=== PATIENT | female | born 1935 | race Caucasian/White ===

== ENCOUNTER 2016-12-06 14:29 | Emergency (ER) | payer MEDICARE ==
[~2016-12-06] VITALS: Ht 157.5 cm; Wt 71.2 kg
[2016-12-06] MEDS ORDERED: LORA10TA2 (14:55)
[2016-12-06] MEDS ORDERED: LEVO75TA4 (14:55)
[2016-12-06] MEDS ORDERED: HYDR25TA6 (14:55)
[2016-12-06] MEDS ORDERED: LORA-376 (14:55)
[2016-12-06] MEDS ORDERED: VALA1TAB (14:55)
[2016-12-06] MEDS ORDERED: METO100T (14:55)
[2016-12-06] MEDS ORDERED: ACCU1TAB (14:55)
[2016-12-06] MEDS ORDERED: PRED10TA (14:55)
[2016-12-06] MEDS ORDERED: ATOR1TAB18 (14:55)
[2016-12-06] MEDS ORDERED: POTA1TAB21 (14:55)
--- NOTE | 2016-12-06 15:14 | ECGEPIP ---
Stationary ECG Study [facility] - ED Test Date: 2016-12-06 Pat Name: HUMBERTO CHANDLER Department: Room: - Gender: F Mathematical Sciences Professor: : 1935 Requested By: Torri Cheung Order Number: [id number] Reading MD: Delmer El Measurements Intervals [place] Rate: 99 P: 19 NH: 168 QRS: -34 QRSD: 85 T: 78 QT: 346 QTc: 445 Interpretive Statements SINUS RHYTHM PATTERN CONSISTENT WITH PULMONARY DISEASE LEFT VENTRICULAR HYPERTROPHY AND ST-T CHANGE INFERIOR MYOCARDIAL INFARCTION, OF INDETERMINATE AGE NO PRIORS Electronically Signed On 12-06-2016 15:14:29 EDT by Delmer El
--- NOTE | 2016-12-06 15:58 | REP ---
CT HEAD WITHOUT CONTRAST: HISTORY: Altered mental status. Areas of decreased attentuation are present in the basal ganglia. These represent old lacunar infarctions. Areas of decreased attenuation are present in the periventricular and subcortical white matter. This represents small vessel ischemic disease. There is no intraparenchymal hemorrhage, mass, or midline shift. The ventricular system and cortical sulci are dilated consistent with mild volume loss. There is no extracerebral collection. The visualized sinuses are clear. IMPRESSION: 1. Old bilateral basal ganglia lacunar infarctions. 2. Small vessel ischemic disease. 3. Mild volume loss. Signed by Janes Silva MD 12/06/2016 04:09 P
[2016-12-06 16:43] LABS: BASO % 0.2 % (0.0-1.0); EOS % 0.5 % (0.0-3.0); LARGE UNSTAINED CELL # 0.1 K/mm3 (0.0-0.4); LARGE UNSTAINED CELL % 1.1 % (0.0-4.0); LYMPH # 1.6 K/mm3 (1.5-4.5); LYMPH % 15.2 % (24.0-44.0); MEAN CORPUSCULAR HEMOGLOBIN 30.6 pg (27.0-33.0); MEAN CORPUSCULAR HGB CONC 34.3 g/dl (32.0-36.5); MONO # 0.6 K/mm3 (0.0-0.8); MONO % 5.4 % (0.0-5.0); NEUTROPHILS # 7.9 K/mm3 (1.8-7.7); NEUTROPHILS % 77.6 % (36.0-66.0); PLATELET COUNT, AUTOMATED 242 k/mm3 (150-450); RED CELL DISTRIBUTION WIDTH 13.1 % (11.5-14.5); WHITE BLOOD COUNT 10.2 K/mm3 (4.0-10.0)
[2016-12-06 16:53] LABS: CALCIUM LEVEL 9.6 MG/DL (8.8-10.2); CREATININE FOR GFR 1.29 MG/DL (0.55-1.02); GLOMERULAR FILTRATION RATE 42.2 (>32); POTASSIUM SERUM 3.3 MEQ/L (3.5-5.1)
[2016-12-06] MEDS ORDERED: NS 500 ML IV ONE ×2 (17:00→18:00)
[2016-12-06] MEDS ORDERED: diphenhydrAMINE INJ 50MG/ML VIAL (J1200) IV ONE (20:00)
[2016-12-06] MEDS ORDERED: METOPROLOL TART 50 MG TAB PO ONE ×2 (20:30→22:30)
[2016-12-06 22:58] VITALS: BP 191/95
[2016-12-06 23:00] VITALS: BP 195/96
== END 2016-12-06 23:15 | disposition home or self-care (01) ==
LOC: M ED 15:44
DX: R53.1 Weakness (principal); I73.9 Peripheral vascular disease, unspecified; B02.9 Zoster without complications; I10 Essential (primary) hypertension; E11.9 Type 2 diabetes mellitus without complications; E78.00 Pure hypercholesterolemia, unspecified; F41.9 Anxiety disorder, unspecified; E07.9 Disorder of thyroid, unspecified; Z95.5 Presence of coronary angioplasty implant and graft; Z90.79 Acquired absence of other genital organ(s); Z79.899 Other long term (current) drug therapy; Z88.0 Allergy status to penicillin
CPT/HCPCS: 36415; 70450; 80048; 82550; 82553; 84484; 85025; 93005; 93041; 94760; 96361; 96374; 99285; J1200

== ENCOUNTER → 2020-03-19 | Outpatient (REF) | payer MEDICARE ==
[~2020-03-19] MED LIST: ACCU1TAB; ATOR80TA59; HYDR25TA6; LEVO75TA4; LORA-243; LORA0.5T5; METO100T5; POTA1TAB21; PRED10TA2; VALA1TAB5
[2020-03-19 19:32] LABS: APPEARANCE, URINE CLOUDY (CLEAR); BACTERIA, URINE AUTO 1+ (NEGATIVE); BILIRUBIN, URINE AUTO NEGATIVE (NEGATIVE); BLOOD, URINE BLOOD NEGATIVE (NEGATIVE); COLOR, URINE YELLOW (YELLOW); GLUCOSE, URINE (UA) AUTO NEGATIVE (NEGATIVE); KETONE, URINE AUTO NEGATIVE (NEGATIVE); LEUKOCYTE ESTERASE, URINE AUTO 1+ (NEGATIVE); NITRITE, URINE AUTO NEGATIVE (NEGATIVE); PROTEIN, URINE AUTO NEGATIVE (NEGATIVE); RBC, URINE AUTO 1 /HPF (0-3); SPECIFIC GRAVITY URINE AUTO 1.014 (1.002-1.035); SQUAMOUS EPITHELIAL CELL UR AU 4 /HPF (0-6); UROBILINOGEN, URINE AUTO 0.2 mg/dL (0.0-2.0); WBC, URINE AUTO 2 /HPF (0-3)
== END ==
LOC: M LAB REF 13:30
PROVIDERS: ATTEND Nurse Practitioner Women's Health
DX: N39.0 Urinary tract infection, site not specified (principal)
CPT/HCPCS: 81001; 87086; G0463

== ENCOUNTER 2020-09-27 12:59 | Inpatient (IN) | payer MEDICARE ==
[~2020-09-27] VITALS: Ht 157.5 cm; Wt 74.7 kg
[2020-09-27] MEDS ORDERED: METOPROLOL TART 50 MG TAB PO ONE (13:40)
[2020-09-27 13:42] LABS: BASO # 0.1 10^3/uL (0.0-0.2); BASO % 0.7 % (0.0-1.0); EOS # 0.1 10^3/uL (0.0-0.5); EOS % 0.8 % (0.0-3.0); HEMATOCRIT 48.3 % (36.0-47.0); HEMOGLOBIN 15.8 g/dl (12.0-15.5); LYMPH # 2.6 10^3/uL (1.5-5.0); LYMPH % 25.7 % (24.0-44.0); MEAN CORPUSCULAR HEMOGLOBIN 30.4 pg (27.0-33.0); MEAN CORPUSCULAR HGB CONC 32.7 g/dl (32.0-36.5); MEAN CORPUSCULAR VOLUME 93.1 fl (80.0-96.0); MONO % 10.1 % (2.0-8.0); NEUTROPHILS # 6.2 10^3/uL (1.5-8.5); NEUTROPHILS % 62.3 % (36.0-66.0); PLATELET COUNT, AUTOMATED 169 10^3/uL (150-450); RED BLOOD COUNT 5.19 10^6/uL (4.00-5.40); WHITE BLOOD COUNT 9.9 10^3/uL (4.0-10.0)
--- NOTE | 2020-09-27 13:49 | REP ---
INDICATION: Altered Mental Status COMPARISON: 12/06/2016 TECHNIQUE: Axial noncontrast images from the skull base to the thoracic inlet with coronal reformations. This CT examination was performed using the following dose reduction techniques: Automated exposure control, adjustment of mA and/or kv according to the patient's size, and use of iterative reconstruction technique. FINDINGS: There is an area of low density involving the lateral right frontal lobe most suggestive of subacute infarction and should be correlated with physical examination and timing of symptoms. No associated hemorrhage. Remainder of the examination demonstrates atrophy, periventricular leukomalacia, and microvascular ischemic changes along with small chronic lacunar infarcts in the bilateral basal ganglia. No hemorrhage. No mass effect. No extra-axial collection. Calvarium is intact. Paranasal sinuses and mastoid air cells are clear. IMPRESSION: Subacute infarction involving the right frontal lobe. No associated hemorrhage or significant edema/mass effect. <Electronically signed by Jose Hoover > 09/27/20 [id number]
--- NOTE | 2020-09-27 13:52 | REP ---
INDICATION: Altered Mental Status COMPARISON: None. TECHNIQUE: Axial noncontrast images from the skull base to the thoracic inlet with coronal and sagittal re-formations This CT examination was performed using the following dose reduction techniques: Automated exposure control, adjustment of mA and/or kv according to the patient's size, and use of iterative reconstruction technique. FINDINGS: Age-related osteopenia and advanced multilevel degenerative changes including endplate sclerosis, disc space narrowing, marginal and posterior osteophytes, and facet hypertrophy noted. No obvious acute fracture/compression injury or acute subluxation. Spinal canal is grossly patent. Paravertebral soft tissues are within normal limits. Incidental nonacute enlarged left thyroid lobe. IMPRESSION: 1. Age-related osteopenia and advanced multilevel degenerative spondylosis. 2. No evidence for acute fracture/compression injury or subluxation. <Electronically signed by Jose Hoover > 09/27/20 [id number]
[2020-09-27 13:59] LABS: OSMOLALITY SERUM 288 MOSM/KG (280-301)
--- NOTE | 2020-09-27 14:07 | REP ---
INDICATION: Altered Mental Status COMPARISON: None. TECHNIQUE: Portable AP view of the chest FINDINGS: Mediastinum demonstrates atherosclerotic changes and tortuous thoracic aorta. Cardiomegaly cannot be excluded. Lung ferrer demonstrate chronic appearing interstitial changes. No discrete focal consolidation, obvious effusion, or pneumothorax. Skeletal structures demonstrate age-related changes. IMPRESSION: Chronic appearing changes. No obvious focal consolidation or effusion. <Electronically signed by Jose Hoover > 09/27/20 [id number]
[2020-09-27 14:20] LABS: ACETAMINOPHEN LEVEL 3.2 UG/ML (10.0-30.0); ALBUMIN 3.8 GM/DL (3.2-5.2); ALT/SGPT 27 U/L (12-78); BILIRUBIN,DIRECT 0.2 MG/DL (0.0-0.2); BILIRUBIN,TOTAL 0.8 MG/DL (0.2-1.0); BLOOD UREA NITROGEN 22 MG/DL (7-18); CALCIUM LEVEL 9.7 MG/DL (8.8-10.2); CARBON DIOXIDE LEVEL 27 MEQ/L (21-32); CHLORIDE LEVEL 102 MEQ/L (98-107); CK-MB VALUE MASS < 1.0 NG/ML (<3.6); CPK CREATINE PHOSPHOKINASE 60 U/L (26-192); CREATININE FOR GFR 1.43 MG/DL (0.55-1.30); ETHYL ALCOHOL (ETHANOL) < 0.003 % (0.000-0.010); FREE T4 1.17 NG/DL (0.76-1.46); GLOMERULAR FILTRATION RATE 37.1 (>32); GLUCOSE, FASTING 123 MG/DL (70-100); MB/CK RELATIVE INDEX 1.67 (< OR =4); SALICYLATE LEVEL < 1.7 MG/DL (5.0-30.0); SODIUM LEVEL 137 MEQ/L (136-145); TOTAL PROTEIN 7.6 GM/DL (6.4-8.2); TROPONIN I < 0.02 NG/ML (< 0.10)
[2020-09-27 14:57] LABS: AMPHETAMINES LEVEL URINE NEGATIVE (NEGATIVE); BARBITURATES URINE NEGATIVE (NEGATIVE); BENZODIAZEPINES URINE NEGATIVE (NEGATIVE); CANNABINOIDS URINE NEGATIVE (NEGATIVE); COCAINE METABOLITE URINE NEGATIVE (NEGATIVE); METHADONE URINE NEGATIVE (NEGATIVE); OPIATES URINE NEGATIVE (NEGATIVE); PHENCYCLIDINE URINE NEGATIVE (NEGATIVE)
[2020-09-27] MEDS ORDERED: ACETAMINOPHEN TAB 650MG DOSE (2X325MG) PO ONE (15:00)
[2020-09-27] MEDS ORDERED: ASPIRIN 81 MG CHEW TABLET PO ONE (15:10)
[2020-09-27] MEDS ORDERED: DEXTROSE 50% 50 ML SYRINGE IV PRN (15:25)
[2020-09-27] MEDS ORDERED: GLUCOSE 4GM CHEW TABLET PO PRN (15:25)
[2020-09-27] MEDS ORDERED: GLUCAGON INJ 1MG VIAL SC PRN (15:25)
[2020-09-27 15:31] LABS: RSV AMPLIFICATION NEGATIVE (NEGATIVE)
[2020-09-27] MEDS ORDERED: HYDR-3490 PO (15:41)
[2020-09-27] MEDS ORDERED: SYNT75TA PO (15:41)
[2020-09-27] MEDS ORDERED: ATIV1TAB10 PO (15:41)
[2020-09-27] MEDS ORDERED: QUIN10TA32 PO (15:41)
[2020-09-27] MEDS ORDERED: ATOR80TA59 PO (15:41)
[2020-09-27] MEDS ORDERED: GABA-282 PO (15:41)
[2020-09-27] MEDS ORDERED: METO100T5 PO (15:41)
[2020-09-27 15:53] LABS: CHOLESTEROL LEVEL 204 MG/DL (<200); HDL CHOLESTEROL 39 MG/DL (>40); LDL CHOLESTEROL 99 MG/DL (<100); NON-HDL-C 165 MG/DL; TRIGLYCERIDES LEVEL 332 MG/DL (<150)
[2020-09-27] MEDS ORDERED: COMMENTS (16:01)
[2020-09-27 16:02] LABS: HEMOGLOBIN A1c 6.3 %
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
[2020-09-27] MEDS ORDERED: LORazepam 2 MG/ML VIAL IV STA ×2 (16:34→17:23)
[2020-09-27] MEDS ORDERED: LORazepam 0.5 MG TAB PO PRN (16:45)
[2020-09-27] MEDS ORDERED: HumaLOG INSULIN (NovoLOG) PER UNIT SC SCH ×2 (17:30→21:00)
--- NOTE | 2020-09-27 18:12 | REPVR ---
PROCEDURE INFORMATION: Exam: US Duplex Bilateral Extracranial Arteries Exam date and time: 09/27/2020 5:12 PM Age: 85 years old Clinical indication: Other: Cnonfused; Additional info: CVA frontal lobe TECHNIQUE: Imaging protocol: Real-time Duplex ultrasound scan of the bilateral carotid and vertebral arteries combining brandt scale, color Doppler and spectral waveform analysis. Bilateral exam. COMPARISON: 1. CT Spine,cervical w/o contrast 09/27/2020 1:[address] Head without contrast 09/27/2020 1:33:04 PM FINDINGS: Limitations: Limited study due to patient motion artifact. Right common carotid artery: There is mild mixed calcified and noncalcified atherosclerotic plaque in the right common carotid artery. Blunted early systolic peaks are seen. There is also spectral broadening which suggests turbulent flow. Peak systolic velocity is 43 cm/s. Right internal carotid artery: There is mild mixed calcified and noncalcified atherosclerotic plaque in the right internal carotid artery. Blunted early systolic peaks are seen. There is also spectral broadening which suggests turbulent flow. Peak systolic velocity is 34 cm per 2nd. Right ICA/CCA ratio: Right ICA to CCA ratio is 0.78. Right external carotid artery: No stenosis in the origin. Right vertebral artery: There is antegrade flow in the right vertebral artery. Left common carotid artery: There is mild mixed calcified and noncalcified atherosclerotic plaque in the left common carotid artery. Blunted early systolic peaks are seen. There is also spectral broadening which suggests turbulent flow. Peak systolic velocity is 53 cm/s. Left internal carotid artery: There is mild mixed calcified and noncalcified atherosclerotic plaque in the left internal carotid artery. Blunted early systolic peaks are seen. There is also spectral broadening which suggests turbulent flow. Peak systolic velocity is 48 cm/s. Left ICA/CCA ratio: Left ICA to CCA ratio is 0.89. Left external carotid artery: No stenosis in the origin. Left vertebral artery: Left vertebral artery was not able to be visualized. IMPRESSION: 1. Mild mixed calcified and noncalcified atherosclerotic plaque in the bilateral carotid arteries, with mild less than 50% stenosis of the internal carotid arteries bilaterally. However, there are blunted early systolic plate peaks and spectral broadening throughout. Suggest CT angiography for further evaluation. Given the patient's frontal stroke and these findings, CT angiography of the head and neck could be considered. 2. Left vertebral artery was not visualized. It is unclear whether this is related to technical limitations in this study with patient motion artifact, or lack of flow in the left vertebral artery. Suggest CT angiography for further evaluation. REFERENCES: SRU CRITERIA. The degree of internal carotid artery stenosis is based on criteria defined by the Society of Radiologists in Ultrasound (SRU). Normal is no stenosis. Mild is less than 50% stenosis. Moderate is 50-69% stenosis. Severe is greater than 69% stenosis to near occlusion. Near occlusion is a markedly narrowed lumen. Total occlusion is no detectable patent lumen. Electronically signed by: Kristina Marrero On 09/27/2020 18:11:56 PM
[2020-09-27 20:00] VITALS: BP 168/94
[2020-09-27] MEDS: METOPROLOL TARTRATE 100 MG TAB PO SCH (20:31)
[2020-09-27] MEDS: QUEtiapine FUMARATE 25 MG TAB PO SCH (20:31)
[2020-09-27] MEDS: HEPARIN SOD (PORCINE) 5000UNITS/ML 1ML VIAL/SYRINGE SC SCH (20:32)
[2020-09-28] VITALS: BP 142/109
[2020-09-28 04:00] VITALS: BP 175/99
[2020-09-28 06:07] LABS: HEMATOCRIT 49.4 % (36.0-47.0); HEMOGLOBIN 16.1 g/dl (12.0-15.5); MEAN CORPUSCULAR HEMOGLOBIN 30.7 pg (27.0-33.0); MEAN CORPUSCULAR HGB CONC 32.6 g/dl (32.0-36.5); MEAN CORPUSCULAR VOLUME 94.1 fl (80.0-96.0); PLATELET COUNT, AUTOMATED 152 10^3/uL (150-450); RED BLOOD COUNT 5.25 10^6/uL (4.00-5.40); WHITE BLOOD COUNT 9.5 10^3/uL (4.0-10.0)
[2020-09-28 06:47] LABS: CALCIUM LEVEL 9.6 MG/DL (8.8-10.2); CREATININE FOR GFR 1.39 MG/DL (0.55-1.30); GLOMERULAR FILTRATION RATE 38.4 (>32)
[2020-09-28] MEDS: LEVOTHYROXINE 75MCG TABLET (0.075MG) PO SCH (06:52)
[2020-09-28] MEDS: ACETAMINOPHEN TAB 650MG DOSE (2X325MG) PO PRN (06:56)
[2020-09-28] MEDS: GABAPENTIN 300 MG CAP PO SCH (07:54)
[2020-09-28] MEDS: ATORVASTATIN 20 MG TAB PO SCH (07:54)
[2020-09-28] MEDS: METOPROLOL TARTRATE 100 MG TAB PO SCH ×2 (07:55→21:18)
[2020-09-28] MEDS: HEPARIN SOD (PORCINE) 5000UNITS/ML 1ML VIAL/SYRINGE SC SCH ×2 (07:56→21:18)
[2020-09-28 08:00] VITALS: BP 185/118
[2020-09-28] MEDS ORDERED: LORazepam 2 MG/ML VIAL IV PRN ×2 (08:05→17:50)
[2020-09-28] MEDS ORDERED: ASPIRIN 81MG ENTERIC TABLET PO SCH (09:00)
--- NOTE | 2020-09-28 09:35 | ECGEPIP ---
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
[2020-09-28] MEDS: QUINAPRIL 20 MG TAB PO SCH (10:42)
[2020-09-28 12:00] VITALS: BP 147/89
--- NOTE | 2020-09-28 12:03 | IPNPDOC ---
Date Seen The patient was seen on 09/28/20. Progress Note SUBJECTIVE: BP uncontrolled >180 mmHg systolic, added back home ACEi. Answering questions appropriately when awake, very tired on exam but per nursing, she was eating this AM and answering appropriately. Unable to do MRI/MRA 09/27/20 due to increased agitation, will try again today as is more calm and slept well overnight. OBJECTIVE PHYSICAL EXAMINATION: VS: Please see below CONSTITUTIONAL: No acute distress, resting comfortably, still AAO x 1 (self), pleasant and follows commands well EYES: PERRLA, EOM intact HENT, MOUTH: Normocephalic, atraumatic, moist mucous membranes NECK: SUPPLE, no JVD, no lymphadenopathy, no carotid bruit CV: Regular rate and rhythm, S1S2 normal, no murmurs/rubs/gallops RESPIRATORY: Clear to auscultation bilaterally, no rales/rhonchi/wheezes GI: obese abd, BS positive in 4 quadrants, soft, nontender, nondistended, no rebound or guarding, no organomegaly : Deferred MUSCULOSKELETAL: Normal ROM. No cyanosis, clubbing, swelling, joint deformity, extremity edema INTEGUMENTARY: Intact, no rashes, no lesions, no erythema NEUROLOGIC: Cranial Nerves II-XII are intact, no focal deficits, reflexes in upper and lower ext intact. No sensory or motor loss PSYCHIATRIC: Pleasantly confused LABORATORY DATA: Please see below IMAGING: US carotids: 1. Mild mixed calcified and noncalcified atherosclerotic plaque in the bilateral carotid arteries, with mild less than 50% stenosis of the internal carotid arteries bilaterally. However, there are blunted early systolic plate peaks and spectral broadening throughout. Suggest CT angiography for further evaluation. Given the patient's frontal stroke and these findings, CT angiography of the head and neck could be considered. 2. Left vertebral artery was not visualized. It is unclear whether this is related to technical limitations in this study with patient motion artifact, or lack of flow in the left vertebral artery. Suggest CT angiography for further evaluation. F/u echocardiogram, MRI/MRA brain CT head: Subacute infarction involving the right frontal lobe. No associated hemorrhage or significant edema/mass effect. Ct cervical spine, CXR: neg for acute findings ASSESSMENT: 85 y/o F past medical history of hypertension, coronary artery disease status post VT and stent placement, ?diabetes, CKD stage III, hyperlipidemia, peripheral neuropathy admitted for further workup of altered mental status secondary to right frontal lobe subacute CVA, atrial fibrillation new onset. PLAN: Right frontal lobe subacute CVA, small-mod size likely 2/2 to hypertensive emergency vs. embolic source -AMS and atrial fibrillation present still -Hx of chronic infarcts on CT head above -BP systolic >180 mmHg over the evening this AM, started ACEi and BP improved to 147 mmHg systolic -Lipid panel pending -C/w metoprolol 100 mg PO BID, ASA 81, home statin -Goal BP is to keep 140-180 mmHg for the next several day to allow perfusion with stroke. If less than 140 mmHg, can decrease BB dosage. If BP > 180 mmHg, consider adding back home HCTZ or increasing ACEi -Discussed in great detail case with both cardiology and neurology. Decision was made to keep only on ASA for the next week instead of full AC due to risk of hemorrhagic conversion with size of stroke. Can repeat imaging at that time prior to starting either 1/2 dose or full dose AC. HTN, resolved hypertensive emergency -Hx of HTN -Added back ACEi from home regimen -Allowing degree of permissive HTN with stroke -See above for BP goals, treatment Atrial fibrillation with RVR - new onset -HR up to 110's at times -ECG Atrial fib -F/u echocardiogram, monitor on tele -C/w home BB BID, ASA instead of full dose AC- see above for reasoning Increased agitation, AMS likely 2/2 to new CVA -Required 2 mg ativan 09/27/20 to attempt imaging -Started seroquel HS to help sleep, as she had been sleep deprived per sister for several days prior -Continue to monitor closely, requiring a lot of redirection currently CKD Stage III -Cr 1.39, appears close to baseline. -C/w home meds, avoid additional nephrotoxic medications. -Daily labs HLD -C/w high dose statin -F/u lipid panel and adjust med accordingly CAD s/p VT, stent placement -Denies chest pain, SOB -trop neg -C/w BB, ASA Peripheral neuropathy / chronic pain -C/w gabapentin DVT px -Teds, SCDs. Avoiding full AC currently. SEe above DISPOSITION: PT/OT to see today. Lives independently so discharge will depend if improvement in mental status. PFS to see after weekend. VS, I&O, 24H, Fishbone Vital Signs/I&O Vital Signs Date Time Temp Pulse Resp B/P (MAP) Pulse Ox O2 Delivery O2 Flow Rate FiO2 09/28/20 10:42 185/118 09/28/20 08:00 97.0 89 20 98 Room Air I&O- Last 24 Hours up to 6 AM 09/28/20 06:00 Intake Total 540 ml Balance 540 ml Laboratory Data 24H LABS Laboratory Tests 2 09/27/20 13:30: Immature Granulocyte % (Auto) 0.4, Neutrophils (%) (Auto) 62.3, Lymphocytes (%) (Auto) 25.7, Monocytes (%) (Auto) 10.1H, Eosinophils (%) (Auto) 0.8, Basophils (%) (Auto) 0.7, Neutrophils # (Auto) 6.2, Lymphocytes # (Auto) 2.6, Monocytes # (Auto) 1.0H, Eosinophils # (Auto) 0.1, Basophils # (Auto) 0.1, Nucleated Red Blood Cells % (auto) 0.0, Anion Gap 8, Glomerular Filtration Rate 37.1, Estimated Mean Plasma Glucose 134H, Hemoglobin A1c 6.3, Osmolality 288, Lactic Acid Level 1.3, Calcium Level 9.7, Total Bilirubin 0.8, Direct Bilirubin 0.2, Aspartate Amino Transf (AST/SGOT) 21, Alanine Aminotransferase (ALT/SGPT) 27, Alkaline Phosphatase 113, Ammonia < 10, Total Creatine Kinase 60, Creatine Kinase MB < 1.0, Creatine Kinase MB Relative Index 1.67, Troponin I < 0.02, Total Protein 7.6, Albumin 3.8, Albumin/Globulin Ratio 1.0L, Triglycerides Level 332H, Total Cholesterol 204H, LDL Cholesterol 99, Non-HDL Cholesterol (LDL + VLDL) 165, Total HDL Cholesterol 39L, Cholesterol/HDL Ratio 5.230H, Thyroid Stimulating Hormone (TSH) 1.160, Free Thyroxine 1.17, Salicylates Level < 1.7L, Acetaminophen Level 3.2L, Ethyl Alcohol Level < 0.003 09/27/20 13:49: Bedside Glucose (Misc Panel) 115H 09/27/20 14:16: Urine Color YELLOW, Urine Appearance HAZY, Urine pH 6.0, Urine Specific [place] 1.009, Urine Protein NEGATIVE, Urine Glucose (UA) NEGATIVE, Urine Ketones NEGATIVE, Urine Blood 1+H, Urine Nitrite NEGATIVE, Urine Bilirubin NEGATIVE, Urine Urobilinogen 0.2, Urine Leukocyte Esterase TRACEH, Urine WBC (Auto) 6H, Urine RBC (Auto) 4H, Urine Hyaline Casts (Auto) 0, Urine Bacteria (Auto) 1+H, Urine Squamous Epithelial Cells 6, Urine Mucus (Auto) SMALL, Urine Sperm (Auto) , Urine Opiates Screen NEGATIVE, Urine Methadone Screen NEGATIVE, Urine Barbiturates Screen NEGATIVE, Urine Phencyclidine Screen NEGATIVE, Urine Amphetamines Screen NEGATIVE, Urine Benzodiazepines Screen NEGATIVE, Urine Cocaine Metabolite Screen NEGATIVE, Urine Cannabinoids Screen NEGATIVE 09/27/20 14:38: Coronavirus (COVID-19)(PCR) NEGATIVE, Influenza Type A (RT-PCR) NEGATIVE, Influenza Type B (RT-PCR) NEGATIVE, Respiratory Syncytial Virus (PCR) NEGATIVE 09/27/20 22:35: Bedside Glucose (Misc Panel) 136H 09/28/20 05:18: Nucleated Red Blood Cells % (auto) 0.0, Anion Gap 10, Glomerular Filtration Rate 38.4, Calcium Level 9.6 CBC/BMP Laboratory Tests 09/27/20 13:30 09/28/20 05:18 Microbiology Microbiology 09/27/20 Urine Culture, Received Pending Mona Dominguez MD Sep 28, 2020 12:03
--- NOTE | 2020-09-28 15:03 | REPVR ---
PROCEDURE INFORMATION: Exam: MR Head Without Contrast Exam date and time: 09/28/2020 3:59 PM Age: 85 years old Clinical indication: Other: CVA; Additional info: CVA frontal lobe TECHNIQUE: Imaging protocol: MR of the head without contrast. COMPARISON: CT Head without contrast 09/27/2020 1:33 PM FINDINGS: Limitations: Study is degraded by patient motion artifact. Brain: There is a moderate-sized ischemic infarction in the right frontal lobe with restricted diffusion, variable ADC isointensity and hypointensity in keeping with late acute-early subacute infarction with associated gyral edema and regional sulcal effacement. There is internal susceptibility artifact in keeping with a small amount of hemorrhagic transformation. No significant midline shift. Multiple incidental dilated perivascular spaces within the bilateral basal ganglia. Moderate generalized cerebral volume loss. There are extensive scattered and confluent areas of white matter T2 hyperintensity, nonspecific but commonly secondary to chronic small vessel ischemic change. Moderate pontine gliosis. Cerebral ventricles: No ventriculomegaly. Bones/joints: Unremarkable. Paranasal sinuses: Normal as visualized. Mastoid air cells: No mastoid effusion. Orbital cavity: Unremarkable. Soft tissues: Unremarkable. IMPRESSION: Late acute-early subacute moderate-sized ischemic infarction in the right frontal lobe with a small amount of internal hemorrhagic transformation. Electronically signed by: Musa Manzo On 09/28/2020 15:03:19 PM
[2020-09-28 16:00] VITALS: BP 145/96
[2020-09-28] MEDS: hydrALAZINE 20MG/ML 1ML VIAL (J0360 PER 20MG) IV SCH (18:00)
[2020-09-28 20:00] VITALS: BP 155/99
[2020-09-28] MEDS: QUEtiapine FUMARATE 25 MG TAB PO SCH (21:17)
--- NOTE | 2020-09-28 22:33 | REPVR ---
PROCEDURE INFORMATION: Exam: CT Head Without Contrast Exam date and time: 09/28/2020 10:21 PM Age: 85 years old Clinical indication: Condition or disease; Cerebrovascular disease; Cerebral infarction; Additional info: Ischemic CVA with hemorrhagic conversion, f/u imaging TECHNIQUE: Imaging protocol: Computed tomography of the head without contrast. Radiation optimization: All CT scans at this facility use at least one of these dose optimization techniques: automated exposure control; mA and/or kV adjustment per patient size (includes targeted exams where dose is matched to clinical indication); or iterative reconstruction. COMPARISON: 1. CT Head without contrast 2020-09-27 13:33 2. MRI-Brain without Contrast 2020-09-28 13:57 FINDINGS: Brain: Unchanged right frontal operculum and lateral frontal lobe recent infarction with petechial hemorrhage. Multiple chronic lacunar infarcts in the white matter. Moderate chronic small vessel ischemic disease and cerebral volume loss. Cerebral ventricles: No ventriculomegaly. Bones/joints: Unremarkable. No acute fracture. Paranasal sinuses: Visualized sinuses are unremarkable. No fluid levels. Mastoid air cells: Visualized mastoid air cells are well aerated. Soft tissues: Unremarkable. IMPRESSION: Unchanged right frontal operculum and lateral frontal lobe recent infarction with petechial hemorrhage. Electronically signed by: Giovany Roberts On 09/28/2020 22:33:11 PM
[2020-09-29] VITALS (10 sets, daily range): BP systolic 119–185; BP diastolic 63–113
[2020-09-29] MEDS: hydrALAZINE 20MG/ML 1ML VIAL (J0360 PER 20MG) IV SCH ×2 (01:42→09:46)
--- NOTE | 2020-09-29 05:15 | REPVR ---
PROCEDURE INFORMATION: Exam: CT Head Without Contrast Exam date and time: 09/29/2020 5:08 AM Age: 85 years old Clinical indication: Condition or disease; Cerebrovascular disease; Other: Ischemic CVA with hemorrhagic conversion, f/u imaging TECHNIQUE: Imaging protocol: Computed tomography of the head without contrast. Radiation optimization: All CT scans at this facility use at least one of these dose optimization techniques: automated exposure control; mA and/or kV adjustment per patient size (includes targeted exams where dose is matched to clinical indication); or iterative reconstruction. COMPARISON: 1. CT Head without contrast 2020-09-28 22:[address] Head without contrast 2020-09-27 13:33 FINDINGS: Brain: Unchanged evolving right lateral frontal lobe hemorrhagic infarct. Multiple chronic lacunar infarcts. No midline shift. Cerebral ventricles: No ventriculomegaly. Bones/joints: Unremarkable. No acute fracture. Paranasal sinuses: Visualized sinuses are unremarkable. No fluid levels. Mastoid air cells: Visualized mastoid air cells are well aerated. Soft tissues: Unremarkable. IMPRESSION: Unchanged evolving right lateral frontal lobe hemorrhagic infarct. Electronically signed by: Giovany Roberts On 09/29/2020 05:14:26 AM
[2020-09-29] MEDS: LEVOTHYROXINE 75MCG TABLET (0.075MG) PO SCH (05:33)
[2020-09-29 06:11] LABS: HEMATOCRIT 52.3 % (36.0-47.0); MEAN CORPUSCULAR HGB CONC 32.5 g/dl (32.0-36.5); MEAN CORPUSCULAR VOLUME 92.2 fl (80.0-96.0); PLATELET COUNT, AUTOMATED 179 10^3/uL (150-450); RED BLOOD COUNT 5.67 10^6/uL (4.00-5.40); WHITE BLOOD COUNT 10.7 10^3/uL (4.0-10.0)
[2020-09-29 06:26] LABS: CREATININE FOR GFR 1.34 MG/DL (0.55-1.30); POTASSIUM SERUM 3.6 MEQ/L (3.5-5.1)
[2020-09-29] MEDS ORDERED: SLF 3 ML SYR IV PRN (07:50)
[2020-09-29] MEDS: QUINAPRIL 20 MG TAB PO SCH (09:00)
[2020-09-29] MEDS: HEPARIN SOD (PORCINE) 5000UNITS/ML 1ML VIAL/SYRINGE SC SCH (09:00)
[2020-09-29] MEDS: METOPROLOL TARTRATE 100 MG TAB PO SCH (09:00)
[2020-09-29] MEDS: ATORVASTATIN 20 MG TAB PO SCH (09:52)
[2020-09-29] MEDS: GABAPENTIN 300 MG CAP PO SCH (09:52)
--- NOTE | 2020-09-29 13:03 | IPNPDOC ---
Date Seen The patient was seen on 09/29/20. Progress Note SUBJECTIVE: Serial CT head showed no increase in bleed, tired today, overall weaker. No new focal deficits on exam. Cancelled MRA brain. Updated neurology. Awake but oriented to only self. OBJECTIVE PHYSICAL EXAMINATION: VS: Please see below CONSTITUTIONAL: No acute distress, resting comfortably, AAO x 1 (self), pleasant and follows commands when she is not falling asleep EYES: PERRLA, EOM intact HENT, MOUTH: Normocephalic, atraumatic, moist mucous membranes NECK: SUPPLE, no JVD, no lymphadenopathy, no carotid bruit CV: irregularly irregular rhythm- currently rate controlled , S1S2 normal, no murmurs/rubs/gallops RESPIRATORY: Clear to auscultation bilaterally, no rales/rhonchi/wheezes GI: obese abd, BS positive in 4 quadrants, soft, nontender, nondistended, no rebound or guarding, no organomegaly : Deferred MUSCULOSKELETAL: Normal ROM. No cyanosis, clubbing, swelling, joint deformity, extremity edema INTEGUMENTARY: Intact, no rashes, no lesions, no erythema NEUROLOGIC: Cranial Nerves II-XII are intact, no focal deficits, reflexes in upper and lower ext intact. No sensory or motor loss LABORATORY DATA: Please see below IMAGING: CT head 09/29/20: Unchanged evolving right lateral frontal lobe hemorrhagic infarct. CT head 09/28/20: Unchanged right frontal operculum and lateral frontal lobe recent infarction with petechial hemorrhage. US carotids: 1. Mild mixed calcified and noncalcified atherosclerotic plaque in the bilateral carotid arteries, with mild less than 50% stenosis of the internal carotid arteries bilaterally. However, there are blunted early systolic plate peaks and spectral broadening throughout. Suggest CT angiography for further evaluation. Given the patient's frontal stroke and these findings, CT angiography of the head and neck could be considered. 2. Left vertebral artery was not visualized. It is unclear whether this is related to technical limitations in this study with patient motion artifact, or lack of flow in the left vertebral artery. Suggest CT angiography for further evaluation. MRI brain: Late acute-early subacute moderate-sized ischemic infarction in the right frontal lobe with a small amount of internal hemorrhagic transformation. MRA brain: cancelled Echocardiogram 09/27/20: pending results CT head: Subacute infarction involving the right frontal lobe. No associated hemorrhage or significant edema/mass effect. Ct cervical spine, CXR: neg for acute findings ASSESSMENT: 85 y/o F past medical history of hypertension, coronary artery disease status post UT and stent placement, ?diabetes, CKD stage III, hyperlipidemia, peripheral neuropathy admitted for further workup of altered m ental status secondary to right frontal lobe subacute CVA, atrial fibrillation new onset. PLAN: Right frontal lobe subacute CVA with hemorrhagic conversion 2/2 to hypertensive emergency vs. embolic source -Discussed conversion with HCP (sister Alba) in great detail, opted not to send to [facility] for neurosurgical evaluation -AMS and atrial fibrillation present still -Serial CT's showed no increase in size of bleed -BP control with ideal BP 140-150 mmHg, at goal . See treatment below -C/w metoprolol 100 mg PO BID, high dose statin. ASA stopped. -Discussed in great detail case with both cardiology and neurology. We have stopped ASA and heparin SC due to hemorrhage currently. She will likely need to be off ASA for several weeks before can resume again. This will put her at more risk for emboli, new CVA. Since Bleed is stable on serial CT's overnight, monitor for changes in mentation, repeat CT on 10/01/20. If patient's bleed should worsen, family states they would like to talk about comfort more than becoming more aggressive. For now [facility] filled out today with HCP, DNR with t rial of intubation. -Lived independently prior to this, needs a lot of redirection so will likely n eed skilled facility -PT/OT HTN -Hx of HTN -Held ACEi and BB this AM due to BP 120's systolic -Goal BP 140-150 mmHg. Atrial fibrillation with RVR - new onset -HR controlled -ECG Atrial fib -F/u echocardiogram, monitor on tele -C/w home BB BID, stopped ASA due to bleed above Increased agitation, AMS likely 2/2 to new CVA- improved -More settled into room, familiar nursing faces. -On seroquel HS to help with agitation at night -Continue to monitor closely, requiring a lot of redirection CKD Stage III -Cr 1.34, appears close to baseline. -C/w home meds, avoid additional nephrotoxic medications. -Daily labs HLD -C/w high dose statin CAD s/p UT, stent placement -Denies chest pain, SOB -trop neg -C/w BB, stopped ASA Peripheral neuropathy / chronic pain -C/w gabapentin DVT px -Teds, SCDs. Avoiding AC DISPOSITION: PT/OT to see today. Lives independently so discharge will depend if improvement in mental status. PFS to see after weekend. VS, I&O, 24H, Fishbone Vital Signs/I&O Vital Signs Date Time Temp Pulse Resp B/P (MAP) Pulse Ox O2 Delivery O2 Flow Rate FiO2 09/29/20 12:00 97.1 72 20 120/76 (91) 95 Room Air I&O- Last 24 Hours up to 6 AM 09/29/20 06:00 Intake Total 540 ml Balance 540 ml Laboratory Data 24H LABS Laboratory Tests 2 09/29/20 05:45: Anion Gap 9, Glomerular Filtration Rate 40.0, Calcium Level 10.0 09/29/20 05:52: Nucleated Red Blood Cells % (auto) 0.0 CBC/BMP Laboratory Tests 09/29/20 05:45 09/29/20 05:52 Microbiology Microbiology 09/27/20 Urine Culture, Received Pending Current Medications Current Medications Medications (Trade) Dose Ordered Sig/Carlos Route PRN Reason Start Time Stop Time Status Last Admin Dose Admin Acetaminophen (Tylenol Tab) 650 mg Q4H PRN PO PAIN OR FEVER 09/27/20 15:25 09/28/20 06:56 Aspirin (Ecotrin) 81 mg DAILY PO 09/28/20 09:00 09/28/20 19:15 DC 09/28/20 07:54 Atorvastatin Calcium (Lipitor) 80 mg DAILY PO 09/28/20 09:00 09/29/20 09:52 Dextrose (Dextrose 50%) 25 ml ASDIRECTED PRN IV SEE LABEL COMMENTS 09/27/20 15:25 Cancel Gabapentin (Neurontin) 300 mg DAILY PO 09/28/20 09:00 09/29/20 09:52 Glucagon (Glucagon) 1 mg ASDIRECTED PRN SC SEE LABEL COMMENTS 09/27/20 15:25 Cancel Glucose (Glucose) 16 GM ASDIRECTED PRN PO SEE LABEL COMMENTS 09/27/20 15:25 Cancel Heparin Sodium (Porcine) (Heparin) 5,000 units Q12H SC 09/27/20 21:00 09/29/20 10:09 DC 09/28/20 07:56 Home Med (Med Rec Complete!) ASDIRECTED XX 09/27/20 16:05 09/27/20 16:04 DC Hydralazine HCl (Apresoline) 5 mg Q8H IV 09/28/20 18:00 09/29/20 01:42 Insulin Human Lispro (HumaLOG INSULIN) SEE PROTOCOL TABLE AC SC 09/27/20 17:30 09/27/20 16:43 DC Insulin Human Lispro (HumaLOG INSULIN) SEE PROTOCOL TABLE QHS SC 09/27/20 21:00 09/27/20 16:43 DC Levothyroxine Sodium (Synthroid) 75 mcg DAILY@0600 PO 09/28/20 06:00 09/29/20 05:33 Lorazepam (Ativan) 0.5 mg QID PRN PO ANXIETY/AGITATION 09/27/20 16:45 Lorazepam (Ativan) 1 mg STAT STAT IV 09/27/20 16:34 09/27/20 16:36 DC 09/27/20 16:44 Lorazepam (Ativan) 1 mg STAT STAT IV 09/27/20 17:23 09/27/20 17:26 DC 09/27/20 17:35 Lorazepam (Ativan) 1.5 mg ONCE PRN IV SEE DOSE INSTRUCTIONS 09/28/20 08:05 09/28/20 15:00 DC 09/28/20 14:15 Lorazepam (Ativan) 1.5 mg Q6HP PRN IV ANXIETY/AGITATION 09/28/20 17:50 Metoprolol Tartrate (Lopressor) 100 mg BID PO 09/27/20 21:00 09/28/20 21:18 Quetiapine Fumarate (SEROquel) 25 mg QHS PO 09/27/20 21:00 09/28/20 21:17 Quinapril HCl (Accupril) 10 mg DAILY PO 09/28/20 09:00 09/28/20 10:42 Sodium Chloride (Saline Lock Flush) 2 ml ASDIRECTED PRN IV SEE LABEL COMMENTS 09/29/20 07:50 Sodium Chloride (Saline Lock Flush) 2 ml SLF IV 09/29/20 14:00 Allergies Coded Allergies: Penicillins (Verified Allergy, Unknown, 09/27/20) Mona Dominguez MD Sep 29, 2020 13:03
[2020-09-29] MEDS: SLF 3 ML SYR IV SCH ×2 (14:00→22:22)
--- NOTE | 2020-09-29 14:15 | ECHO ---
DATE OF PROCEDURE: 09/28/2020 Age: 85 Gender: Female Height: 157 cm Weight: 77 kg REFERRING PHYSICIAN: ELAINE MEDEIROS MD INDICATION: Cerebral vascular accident MEASUREMENTS: LA 4.3 cm IVS 0.7 cm LV 4.7 cm LVPW 1.2 cm Aorta 3.3 cm IVC 1.5 cm FINDINGS: This study is of fair technical quality. The patient is in atrial fibrillation with controlled rate. Left ventricle is normal size. It was relatively poorly visualized, especially the anterior wall, but there is septal wall motion abnormality which is severely hypokinetic, if not akinetic. There is also severe hypokinesis, almost akinesis of apex and distal inferior wall. Anterior wall was poorly visualized. Overall, I estimate LVF around 40%, but it potentially can be even worse. Right ventricle is not enlarged. Both atrial are enlarged, likely severely. The aortic valve is tricuspid. It appears normal for the patient's age. Mitral, tricuspid, and pulmonic valves also appear normal for the patient's age. No pericardial effusion is noted, but pericardial fat pad is present. Inferior vena cava is of normal size and appropriately collapses with inspiration. The aortic root is normal. The aortic arch and abdominal aorta were not well seen. Doppler interrogation reveals competent aortic valve. There is [id number] mitral insufficiency and mild tricuspid insufficiency. Calculated pulmonary artery pressure is within normal limits. Pulmonic valve is functionally competent. Evaluation of diastolic function is inconclusive due to underlying atrial fibrillation. CONCLUSIONS: 1. Study is of fair technical quality, the patient is in atrial fibrillation with controlled ventricular rate. 2. Normal LV size with borderline LVH, segmental wall motion abnormalities as noted above, and estimated LVF around 40%. 3. Right ventricle is normal size and systolic function. 4. Biatrial enlargement. 5. [id number] mitral insufficiency. 6. Mild tricuspid insufficiency. 7. Likely normal central venous pressure and normal pulmonary artery pressure. 8. Pericardial fat pad is noted. MTDD
[2020-09-29] MEDS: METOPROLOL TART 50 MG TAB PO SCH (20:30)
[2020-09-29] MEDS: QUEtiapine FUMARATE 25 MG TAB PO SCH (20:52)
[2020-09-30] MEDS: ACETAMINOPHEN TAB 650MG DOSE (2X325MG) PO PRN ×2 (01:57→21:33)
[2020-09-30] MEDS: LEVOTHYROXINE 75MCG TABLET (0.075MG) PO SCH (05:33)
[2020-09-30] MEDS: SLF 3 ML SYR IV SCH ×3 (05:33→21:34)
[2020-09-30 06:00] VITALS: BP 157/94
[2020-09-30 06:19] LABS: HEMOGLOBIN 16.7 g/dl (12.0-15.5); MEAN CORPUSCULAR HEMOGLOBIN 30.1 pg (27.0-33.0); MEAN CORPUSCULAR HGB CONC 32.7 g/dl (32.0-36.5); MEAN CORPUSCULAR VOLUME 92.1 fl (80.0-96.0); PLATELET COUNT, AUTOMATED 166 10^3/uL (150-450); RED BLOOD COUNT 5.54 10^6/uL (4.00-5.40); WHITE BLOOD COUNT 12.5 10^3/uL (4.0-10.0)
[2020-09-30 06:52] LABS: CREATININE FOR GFR 1.41 MG/DL (0.55-1.30); GLOMERULAR FILTRATION RATE 37.7 (>32); POTASSIUM SERUM 3.6 MEQ/L (3.5-5.1)
[2020-09-30] MEDS: GABAPENTIN 300 MG CAP PO SCH (08:59)
[2020-09-30] MEDS: ATORVASTATIN 20 MG TAB PO SCH (08:59)
[2020-09-30] MEDS: METOPROLOL TART 50 MG TAB PO SCH ×2 (09:04→21:31)
--- NOTE | 2020-09-30 11:41 | IPNPDOC ---
Text Note Date of Service The patient was seen on 09/30/20. NOTE SUBJECTIVE: -Continues to be oriented only to self -No fever, chills, chest pain, abdominal pain OBJECTIVE PHYSICAL EXAMINATION: VS: Please see below CONSTITUTIONAL: No acute distress, AAO x 1 (self), pleasant and follows commands EYES: PERRLA, EOM intact HENT, MOUTH: Normocephalic, atraumatic, moist mucous membranes NECK: SUPPLE, no JVD, no lymphadenopathy, no carotid bruit CV: irregularly irregular rhythm- currently rate controlled , S1S2 normal, no murmurs/rubs/gallops RESPIRATORY: Clear to auscultation bilaterally, no rales/rhonchi/wheezes GI: obese abd, BS positive in 4 quadrants, soft, nontender, nondistended, no rebound or guarding, no organomegaly : Deferred MUSCULOSKELETAL: Normal ROM. No cyanosis, clubbing, swelling, joint deformity, extremity edema INTEGUMENTARY: Intact, no rashes, no lesions, no erythema NEUROLOGIC: Cranial Nerves II-XII are intact, no focal deficits noted. No sensory or motor loss noted LABORATORY DATA: Reviewed WBC 12.5 Hgb 16.7 Cr 1.41 IMAGING: CT head 09/29/20: Unchanged evolving right lateral frontal lobe hemorrhagic infarct. CT head 09/28/20: Unchanged right frontal operculum and lateral frontal lobe recent infarction with petechial hemorrhage. US carotids: 1. Mild mixed calcified and noncalcified atherosclerotic plaque in the bilateral carotid arteries, with mild less than 50% stenosis of the internal carotid arteries bilaterally. However, there are blunted early systolic plate peaks and spectral broadening throughout. Suggest CT angiography for further evaluation. Given the patient's frontal stroke and these findings, CT angiography of the head and neck could be considered. 2. Left vertebral artery was not visualized. It is unclear whether this is related to technical limitations in this study with patient motion artifact, or lack of flow in the left vertebral artery. Suggest CT angiography for further evaluation. MRI brain: Late acute-early subacute moderate-sized ischemic infarction in the right frontal lobe with a small amount of internal hemorrhagic transformation. MRA brain: cancelled Echocardiogram 09/27/20: pending results CT head: Subacute infarction involving the right frontal lobe. No associated hemorrhage or significant edema/mass effect. Ct cervical spine, CXR: neg for acute findings ASSESSMENT: 85 y/o W with a history of hypertension, coronary artery disease status post SD and stent placement, ?diabetes, CKD stage III, hyperlipidemia, peripheral neuropathy admitted for further workup of altered mental status secondary to right frontal lobe subacute CVA c/b hemorrhagic conversion and newly noted atrial fibrillation. PLAN: Right frontal lobe subacute CVA with hemorrhagic conversion 2/2 to hypertensive emergency vs. embolic source -Discussed conversion with HCP (sister Alba) in great detail, opted not to send to [facility] for neurosurgical evaluation, DNR, trial intubation -AMS and atrial fibrillation present still, no AC -Serial CT's showed no increase in size of bleed -BP control with ideal BP 140-150 mmHg, at goal . See treatment below -C/w metoprolol 100 mg PO BID, high dose statin. ASA stopped. -Discussed in great detail case with both cardiology and neurology. We have stopped ASA and heparin SC due to hemorrhage currently. She will likely need to be off ASA for several weeks before can resume again. This will put her at more risk for emboli, given new CVA. Since Bleed is stable on serial CT's overnight, monitor for changes in mentation, repeat CT on 10/01/20. If patient's bleed should worsen, family states they would like to talk about comfort more than becoming more aggressive. For now MOLST filled with HCP, DNR with trial of intubation. -Lived independently prior to this, needs a lot of redirection so will likely need skilled facility -PT/OT HTN -Hx of HTN -Held ACEi and BB this AM due to BP 120's systolic -Goal BP 140-150 mmHg. Atrial fibrillation with RVR - newly noted -HR controlled -ECG Atrial fib -F/u echocardiogram, monitor on tele -C/w home BB BID, stopped ASA due to bleed above Acute encephalopathy with +UA likely 2/2 UTI vs. CVA -repeat UA, straight cath as she is incontinent -empirically start ceftriaxone for now. Has noted PCN allergy that is unclear and no history of cephalosporins, will monitor for allergic reaction -On seroquel HS to help with agitation at night -Continue to monitor closely, requiring redirection CKD Stage III -Cr 1.34, appears close to baseline. -C/w home meds, avoid additional nephrotoxic medications. -Daily labs HLD -C/w high dose statin CAD s/p SD, stent placement -Denies chest pain, SOB -trop neg -C/w BB, stopped ASA Peripheral neuropathy / chronic pain -C/w gabapentin DVT px -Teds, SCDs. Avoiding AC DISPOSITION: PT/OT. Lives independently so discharge will depend if improvement in mental status. PFS consulted. VS,Fishbone, I+O VS, Fishbone, I+O Laboratory Tests 09/30/20 05:40 09/30/20 05:41 Vital Signs Date Time Temp Pulse Resp B/P (MAP) Pulse Ox O2 Delivery O2 Flow Rate FiO2 09/30/20 06:00 97.2 94 19 157/94 (115) 96 Room Air 09/29/20 16:43 2.0 I&O- Last 24 Hours up to 6 AM 09/30/20 05:59 Intake Total 430 ml Output Total 0 ml Balance 430 ml KIA MCDONALD MD Sep 30, 2020 08:53
[2020-09-30] MEDS: cefTRIAXone SOD 1 GM in D5W MINI-BAG PLUS 50 ML IV SCH (12:59)
[2020-09-30 14:00] VITALS: BP 166/102
[2020-09-30] MEDS: QUEtiapine FUMARATE 25 MG TAB PO SCH (21:31)
[2020-09-30 22:00] VITALS: BP 150/100
[2020-10-01] MEDS: SLF 3 ML SYR IV SCH ×3 (05:41→20:26)
[2020-10-01] MEDS: LEVOTHYROXINE 75MCG TABLET (0.075MG) PO SCH (05:45)
[2020-10-01 06:00] VITALS: BP 148/93
--- NOTE | 2020-10-01 06:05 | REPVR ---
PROCEDURE INFORMATION: Exam: CT Head Without Contrast Exam date and time: 10/01/2020 4:51 AM Age: 85 years old Clinical indication: Altered mental status/memory loss; Confusion or disorientation; Additional info: HX bleed, mental status change TECHNIQUE: Imaging protocol: Computed tomography of the head without contrast. Radiation optimization: All CT scans at this facility use at least one of these dose optimization techniques: automated exposure control; mA and/or kV adjustment per patient size (includes targeted exams where dose is matched to clinical indication); or iterative reconstruction. COMPARISON: CT Head without contrast 09/29/2020 5:02 AM FINDINGS: Brain: Essentially stable to slightly diminished intra-axial hemorrhage in the right frontal lobe with extensive surrounding edema. Old lacunar infarcts in the bilateral basal ganglia more numerous on the left. Mild generalized parenchymal atrophy and evidence of microvascular ischemic disease involving the periventricular and subcortical white matter bilaterally. Cerebral ventricles: Mild blunting of the frontal horn of the right lateral ventricle. Bones/joints: Unremarkable. No acute fracture. Paranasal sinuses: Visualized sinuses are unremarkable. No fluid levels. Mastoid air cells: Visualized mastoid air cells are well aerated. Soft tissues: Unremarkable. IMPRESSION: No significant interval change. Electronically signed by: Tr Spears On 10/01/2020 06:05:56 AM
[2020-10-01 06:19] LABS: HEMATOCRIT 52.4 % (36.0-47.0); HEMOGLOBIN 17.1 g/dl (12.0-15.5); MEAN CORPUSCULAR HEMOGLOBIN 30.5 pg (27.0-33.0); MEAN CORPUSCULAR HGB CONC 32.6 g/dl (32.0-36.5); MEAN CORPUSCULAR VOLUME 93.4 fl (80.0-96.0); PLATELET COUNT, AUTOMATED 174 10^3/uL (150-450); RED BLOOD COUNT 5.61 10^6/uL (4.00-5.40); WHITE BLOOD COUNT 8.9 10^3/uL (4.0-10.0)
[2020-10-01 06:40] LABS: CREATININE FOR GFR 1.26 MG/DL (0.55-1.30); POTASSIUM SERUM 3.4 MEQ/L (3.5-5.1)
[2020-10-01] MEDS: GABAPENTIN 300 MG CAP PO SCH (08:04)
[2020-10-01] MEDS: ATORVASTATIN 20 MG TAB PO SCH (08:04)
[2020-10-01] MEDS: METOPROLOL TART 50 MG TAB PO SCH (08:17)
[2020-10-01] MEDS ORDERED: POTASSIUM CHLORIDE 10 MEQ SR TABLET PO ONE (10:25)
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
[2020-10-01] MEDS: cefTRIAXone SOD 1 GM in D5W MINI-BAG PLUS 50 ML IV SCH (12:19)
[2020-10-01 14:00] VITALS: BP 150/90
[2020-10-01] MEDS: QUEtiapine FUMARATE 25 MG TAB PO SCH (20:25)
[2020-10-01] MEDS: METOPROLOL TART 25 MG TABLET PO SCH (20:29)
[2020-10-01] MEDS: ACETAMINOPHEN TAB 650MG DOSE (2X325MG) PO PRN (20:30)
[2020-10-01 22:00] VITALS: BP 160/94
[2020-10-02] MEDS: LEVOTHYROXINE 75MCG TABLET (0.075MG) PO SCH (05:07)
[2020-10-02] MEDS: SLF 3 ML SYR IV SCH ×3 (05:07→22:30)
[2020-10-02 06:00] VITALS: BP 150/88
[2020-10-02] MEDS: GABAPENTIN 300 MG CAP PO SCH (09:34)
[2020-10-02] MEDS: ATORVASTATIN 20 MG TAB PO SCH (09:34)
[2020-10-02] MEDS: METOPROLOL TART 25 MG TABLET PO SCH (09:36)
--- NOTE | 2020-10-02 12:01 | IPNPDOC ---
Text Note Date of Service The patient was seen on 10/02/20. NOTE SUBJECTIVE: -pleasant this AM, ready to leave the hospital. Discussed need for rehabilitation. -No abdominal pain, chest pain. -Continues to have some confusion but redirectable. Much improved from prior OBJECTIVE PHYSICAL EXAMINATION: VS: Please see below CONSTITUTIONAL: No acute distress, AAO x 1 (self), pleasant and follows commands EYES: PERRLA, EOM intact HENT, MOUTH: Normocephalic, atraumatic, moist mucous membranes NECK: SUPPLE, no JVD, no lymphadenopathy, no carotid bruit CV: irregularly irregular rhythm- currently rate controlled , S1S2 normal, no murmurs/rubs/gallops RESPIRATORY: Clear to auscultation bilaterally, no rales/rhonchi/wheezes GI: obese abd, BS positive in 4 quadrants, soft, nontender, nondistended, no rebound or guarding, no organomegaly : Deferred MUSCULOSKELETAL: Normal ROM. No cyanosis, clubbing, swelling, joint deformity, extremity edema INTEGUMENTARY: Intact, no rashes, no lesions, no erythema NEUROLOGIC: Cranial Nerves II-XII are intact, no focal deficits noted. No sensory or motor loss noted PSYCH: AO x 2 to self, place and context. LABORATORY DATA: Reviewed IMAGING: CT head 10/01/20: FINDINGS: Brain: Essentially stable to slightly diminished intra-axial hemorrhage in the right frontal lobe with extensive surrounding edema. Old lacunar infarcts in the bilateral basal ganglia more numerous on the left. Mild generalized parenchymal atrophy and evidence of microvascular ischemic disease involving the periventricular and subcortical white matter bilaterally. Cerebral ventricles: Mild blunting of the frontal horn of the right lateral ventricle. Bones/joints: Unremarkable. No acute fracture. Paranasal sinuses: Visualized sinuses are unremarkable. No fluid levels. Mastoid air cells: Visualized mastoid air cells are well aerated. Soft tissues: Unremarkable. IMPRESSION: No significant interval change. CT head 09/29/20: Unchanged evolving right lateral frontal lobe hemorrhagic infarct. CT head 09/28/20: Unchanged right frontal operculum and lateral frontal lobe recent infarction with petechial hemorrhage. US carotids: 1. Mild mixed calcified and noncalcified atherosclerotic plaque in the bilateral carotid arteries, with mild less than 50% stenosis of the internal carotid arteries bilaterally. However, there are blunted early systolic plate peaks and spectral broadening throughout. Suggest CT angiography for further evaluation. Given the patient's frontal stroke and these findings, CT angiography of the head and neck could be considered. 2. Left vertebral artery was not visualized. It is unclear whether this is related to technical limitations in this study with patient motion artifact, or lack of flow in the left vertebral artery. Suggest CT angiography for further evaluation. MRI brain: Late acute-early subacute moderate-sized ischemic infarction in the right frontal lobe with a small amount of internal hemorrhagic transformation. MRA brain: cancelled Echocardiogram 09/27/20: FINDINGS: This study is of fair technical quality. The patient is in atrial fibrillation with controlled rate. Left ventricle is normal size. It was relatively poorly visualized, especially the anterior wall, but there is septal wall motion abnormality which is severelyhypokinetic, if not akinetic. There is also severe hypokinesis, almost akinesis of apex and distal inferior wall. Anterior wall was poorly visualized. Overall, I estimate LVF around 40%, but it potentially can be even worse. Right ventricleis not enlarged. Both atrial are enlarged, likely severely. The aortic valve is tricuspid. It appears normal for the patient's age. Mitral, tricuspid, and pulmonic valves also appear normal for the patient's age. No pericardial effusion is noted, but pericardial fat pad is present. Inferior vena cava is of normal size and appropriately collapses with inspiration. The aortic root is normal. The aortic arch and abdominal aorta were not well seen. Doppler interrogation reveals competent aortic valve. There is [id number] mitral insufficiency and mild tricuspid insufficiency. Calculated pulmonary artery pressure is within normal limits. Pulmonic valve is functionally competent. Evaluation of diastolic function is inconclusive due to underlying atrial fibrillation. CONCLUSIONS: 1. Study is of fair technical quality, the patient is in atrial fibrillation with controlled ventricular rate. 2. Normal LV size with borderline LVH, segmental wall motion abnormalities as noted above, and estimated LVF around 40%. 3. Right ventricle is normal size and systolic function. 4. Biatrial enlargement. 5. Awva-wg-ptlezpmp mitral insufficiency. 6. Mild tricuspid insufficiency. 7. Likely normal central venous pressure and normal pulmonary artery pressure. 8. Pericardial fat pad is noted. CT head: Subacute infarction involving the right frontal lobe. No associated hemorrhage or significant edema/mass effect. Ct cervical spine, CXR: neg for acute findings ASSESSMENT: 85 y/o W with a history of hypertension, coronary artery disease status post CT and stent placement, ?diabetes, CKD stage III, hyperlipidemia, peripheral neuropathy admitted for further workup of altered mental status secondary to right frontal lobe subacute CVA c/b hemorrhagic conversion and newly noted atrial fibrillation and mixed kenisha UTI. PLAN: Right frontal lobe subacute CVA with hemorrhagic conversion likely 2/2 to hypertensive emergency vs. embolic source given newly noted Afib -Discussed conversion with HCP (sister Alba) in great detail, [facility], DNR, trial intubation -AMS and atrial fibrillation present still, no AC -Serial CT's showed no increase in size of bleed -BP control with ideal BP 140-150 mmHg, at goal . See treatment below -C/w metoprolol 100 mg PO BID, high dose statin. ASA stopped. -Discussed in great detail case with both cardiology and neurology. We have stopped ASA and heparin SC due to hemorrhage currently. She will likely need to be off ASA for several weeks before can resume again. This will put her at more risk for emboli, given new CVA. Since Bleed is stable on serial CT's overnight, monitor for changes in mentation, repeat CT on 10/01/20. If patient's bleed should worsen, family states they would like to talk about comfort more than becoming more aggressive. For now MOLST filled with HCP, DNR with trial of intubation. -Lived independently prior to this, needs a lot of redirection so will likely need skilled facility -PT/OT HTN -cont home BID BB -Goal BP 140-150 mmHg. Atrial fibrillation with RVR - newly noted -HR goal >100, will increase metop to 75 BID -ECG Atrial fib -echocardiogram per above, monitor on tele -C/w home BB at 75mg BID, stopped ASA due to bleed above Acute encephalopathy with +UA likely 2/2 multi-organism UTI vs. CVA -f/u repeat UA -Continue empiric ceftriaxone, day 2. Has noted PCN allergy that is unclear and no history of cephalosporins, will monitor for allergic reaction -On seroquel HS to help with agitation at night -Continue to monitor closely, requiring redirection CKD Stage III -Cr 1.34, appears close to baseline. -C/w home meds, avoid additional nephrotoxic medications. -Daily labs HLD -C/w high dose statin CAD s/p CT, stent placement -Denies chest pain, SOB -trop neg -C/w BB, stopped ASA Peripheral neuropathy / chronic pain -C/w gabapentin DVT px -Teds, SCDs. Avoiding AC DISPOSITION: PT/OT. Lives independently so discharge will depend if improvement in mental status. PFS consulted. VS,Fishbone, I+O VS, Fishbone, I+O Vital Signs Date Time Temp Pulse Resp B/P (MAP) Pulse Ox O2 Delivery O2 Flow Rate FiO2 10/02/20 09:36 97 170/100 10/02/20 06:00 98.8 18 95 Room Air 09/29/20 16:43 2.0 I&O- Last 24 Hours up to 6 AM 10/02/20 06:00 Intake Total 660 ml Output Total 0 ml Balance 660 ml KIA MCDONALD MD Oct 02, 2020 12:01
[2020-10-02] MEDS: CEPHALEXIN 250MG CAPSULE PO SCH ×3 (12:26→20:10)
[2020-10-02 14:00] VITALS: BP 151/80
[2020-10-02] MEDS: ACETAMINOPHEN TAB 650MG DOSE (2X325MG) PO PRN ×2 (16:50→20:10)
[2020-10-02] MEDS: QUEtiapine FUMARATE 25 MG TAB PO SCH (20:10)
[2020-10-02] MEDS: METOPROLOL TARTRATE 100 MG TAB PO SCH (20:13)
[2020-10-02 22:00] VITALS: BP 160/90
[2020-10-03] MEDS: LEVOTHYROXINE 75MCG TABLET (0.075MG) PO SCH (05:43)
[2020-10-03] MEDS: SLF 3 ML SYR IV SCH (05:43)
[2020-10-03 06:00] VITALS: BP 155/90
[2020-10-03 06:22] LABS: HEMATOCRIT 50.2 % (36.0-47.0); HEMOGLOBIN 16.3 g/dl (12.0-15.5); MEAN CORPUSCULAR HEMOGLOBIN 30.1 pg (27.0-33.0); MEAN CORPUSCULAR HGB CONC 32.5 g/dl (32.0-36.5); MEAN CORPUSCULAR VOLUME 92.6 fl (80.0-96.0); PLATELET COUNT, AUTOMATED 165 10^3/uL (150-450); RED BLOOD COUNT 5.42 10^6/uL (4.00-5.40); WHITE BLOOD COUNT 10.5 10^3/uL (4.0-10.0)
[2020-10-03 06:48] LABS: CALCIUM LEVEL 9.6 MG/DL (8.8-10.2); CREATININE FOR GFR 1.23 MG/DL (0.55-1.30); GLOMERULAR FILTRATION RATE 44.2 (>32); POTASSIUM SERUM 3.5 MEQ/L (3.5-5.1)
[2020-10-03] MEDS: ATORVASTATIN 20 MG TAB PO SCH (08:15)
[2020-10-03] MEDS: GABAPENTIN 300 MG CAP PO SCH (08:15)
[2020-10-03] MEDS: CEPHALEXIN 250MG CAPSULE PO SCH (08:15)
[2020-10-03 08:18] VITALS: BP 180/96
[2020-10-03] MEDS: METOPROLOL TARTRATE 100 MG TAB PO SCH (08:18)
[2020-10-03] MEDS ORDERED: QUET25TA3 PO (10:22)
[2020-10-03] MEDS ORDERED: Cephalexin Monohydrate PO (10:22)
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
== END 2020-10-03 11:49 | DRG 64 ==
LOC: EDBD 12:59 → M ED 12:59 → M ED INP 15:22 → ENRESERV 15:34 → M PCU 17:45 → M MSPAV 09-29 16:54
PROVIDERS: ADMIT Internal Medicine; ATTEND Internal Medicine
DX: I63.59 Cerebral infarction due to unspecified occlusion or stenosis of other cerebral artery (principal); I61.9 Nontraumatic intracerebral hemorrhage, unspecified; G93.41 Metabolic encephalopathy; I16.1 Hypertensive emergency; E11.42 Type 2 diabetes mellitus with diabetic polyneuropathy; I48.91 Unspecified atrial fibrillation; N18.30 Chronic kidney disease, stage 3 unspecified; I10 Essential (primary) hypertension; I25.10 Atherosclerotic heart disease of native coronary artery without angina pectoris; I25.2 Old myocardial infarction; E78.5 Hyperlipidemia, unspecified; Z66 Do not resuscitate; Z95.5 Presence of coronary angioplasty implant and graft; Z20.822 Contact with and (suspected) exposure to COVID-19; Z79.899 Other long term (current) drug therapy; Z88.0 Allergy status to penicillin

== ENCOUNTER 2020-10-07 12:58 | Inpatient (IN) | payer MEDICARE ==
[~2020-10-07] VITALS: Ht 157.5 cm; Wt 74.7 kg
[~2020-10-07 12:58] MED LIST changes: -ACET500T15 PO; -APAP325T4 PO; -BISA10SU27 PR; -ENEMENE PR; -MAGN400O50 PO; -NYST1POW9 TOP; -VITMTA PO
[2020-10-07] MEDS ORDERED: NYST1POW9 TOP (13:46)
[2020-10-07] MEDS ORDERED: VITMTA PO (13:46)
[2020-10-07] MEDS ORDERED: APAP325T4 PO (13:46)
[2020-10-07] MEDS ORDERED: BISA10SU27 PR (13:46)
[2020-10-07] MEDS ORDERED: MAGN400O50 PO (13:46)
[2020-10-07] MEDS ORDERED: ACET500T15 PO (13:46)
[2020-10-07] MEDS ORDERED: ENEMENE PR (13:46)
[2020-10-07 13:59] LABS: BASO # 0.1 10^3/uL (0.0-0.2); BASO % 0.3 % (0.0-1.0); EOS % 0.1 % (0.0-3.0); HEMATOCRIT 51.9 % (36.0-47.0); LYMPH # 1.8 10^3/uL (1.5-5.0); LYMPH % 9.7 % (24.0-44.0); MEAN CORPUSCULAR HEMOGLOBIN 30.2 pg (27.0-33.0); MEAN CORPUSCULAR HGB CONC 32.8 g/dl (32.0-36.5); MEAN CORPUSCULAR VOLUME 92.2 fl (80.0-96.0); MONO # 1.7 10^3/uL (0.0-0.8); MONO % 9.2 % (2.0-8.0); NEUTROPHILS # 14.7 10^3/uL (1.5-8.5); PLATELET COUNT, AUTOMATED 160 10^3/uL (150-450); RED BLOOD COUNT 5.63 10^6/uL (4.00-5.40)
[2020-10-07 14:25] LABS: WHITE BLOOD COUNT 18.4 10^3/uL (4.0-10.0)
[2020-10-07 14:33] LABS: ALBUMIN 3.3 GM/DL (3.2-5.2); BILIRUBIN,DIRECT 0.2 MG/DL (0.0-0.2); BILIRUBIN,TOTAL 0.8 MG/DL (0.2-1.0); CREATININE FOR GFR 1.5 MG/DL (0.55-1.30); GLOMERULAR FILTRATION RATE 35.1 (>32); POTASSIUM SERUM 3.8 MEQ/L (3.5-5.1); TOTAL PROTEIN 7.9 GM/DL (6.4-8.2)
--- NOTE | 2020-10-07 14:34 | REP ---
INDICATION: Altered Mental Status. COMPARISON: 10/01/2020. TECHNIQUE: CT BRAIN PERFORMED IN THE AXIAL PLANE. CORONAL RECONSTRUCTION IMAGES ARE PERFORMED. FINDINGS: Resolving intraparenchymal right frontal hemorrhage is again noted with mild associated edema, with mild decrease in these findings since prior study. No new area of hemorrhage is seen. Old lacunar infarcts are again seen in the basal ganglia bilaterally, left greater than right. Also again noted are changes of mild atrophy and diffuse periventricular small vessel ischemic change in the white matter. There is no midline shift. There are vascular calcifications in the carotid siphons. The visualized paranasal sinuses are clear. The mastoid air cells are well aerated. IMPRESSION: In the right frontal region there is again noted resolving intraparenchymal hemorrhage and mild associated edema. There is mild improvement since the prior study. New findings. <Electronically signed by Lion Amanda > 10/07/20 [id number]
--- NOTE | 2020-10-07 15:09 | REP ---
INDICATION: shortness of breath. COMPARISON: Comparison portable chest x-ray September 27, 2020 peer TECHNIQUE: Portable upright AP chest radiograph. FINDINGS: There is a levoconvex thoracic curvature. Right hemidiaphragm remains somewhat elevated. Cardiomegaly is observed. These findings are unchanged. Monitoring electrodes and oxygen delivery tubing is seen. No acute infiltrate is appreciated. The thoracic aorta is calcific and tortuous as before. Pulmonary vasculature is not increased.. IMPRESSION: Levoconvex thoracic curvature. Cardiomegaly. Somewhat elevated right hemidiaphragm. No acute infiltrate seen.. <Electronically signed by Ronald Maloney > 10/07/20 [id number]
[2020-10-07 15:17] LABS: ABG BASE EXCESS 1.2 (-2.0-2.0); ABG HCO3 24.7 MEQ/L (22.0-26.0); ABG O2 SATURATION 91.6 % (95.0-99.0); ABG PARTIAL PRESSURE O2 58.9 mmHg (75.0-100.0); ABG STANDARD HCO3 25.4 MEQ/L (22.0-26.0); ABG TOTAL CO2 25.8 MEQ/L (23.0-31.0); ABG pH (ARTERIAL) 7.454 UNITS (7.350-7.450)
[2020-10-07 18:15] LABS: RSV AMPLIFICATION NEGATIVE (NEGATIVE)
[2020-10-07] MEDS ORDERED: SCOPOLAMINE 1MG TRANSDERMAL PATCH TOP PRN (19:30)
[2020-10-07] MEDS ORDERED: ONDANSETRON 4MG/2ML VIAL IV PRN (19:30)
[2020-10-07] MEDS ORDERED: MOM 30ML SUSPENSION UDC PO PRN (19:30)
[2020-10-07] MEDS ORDERED: MORPHINE 2 MG/ML 1ML VIAL (J2270) IV PRN (19:30)
[2020-10-07] MEDS ORDERED: BISACODYL 10 MG SUPP PR PRN (19:30)
[2020-10-07] MEDS ORDERED: MAALOX 30 ML SUSP *UDC PO PRN (19:30)
[2020-10-07] MEDS ORDERED: LORazepam 2 MG/ML VIAL IV PRN (19:30)
[2020-10-07] MEDS ORDERED: FLEET ENEMA PR PRN (19:30)
--- NOTE | 2020-10-07 19:43 | HPEPDOC ---
[facility] Medical History & Physical Date of Admission Oct 07, 2020 Date of Service: Oct 07, 2020 History and Physical CHIEF COMPLAINT: Worsened mental status HISTORY OF PRESENT ILLNESS: 85-year-old female history of hypertension, CAD, CKD, atrial fibrillation and recently a right frontal lobe ischemic stroke with hemorrhagic conversion. She was recently admitted to [facility] between September 27 and October 03 for this ischemic str nidhi with hemorrhagic conversion. In that time she had preserved motor function but a persistent episode of encephalopathy which appeared to improve slightly towards the end of her stay at the hospital with treatment of a multi kenisha UTI. She was undergoing subacute rehabilitation but unfortunately her mental status has deteriorated and she was sent back to the emergency department. No organic cause has been found for her worsening mental state outside clinical progression of her stroke although the CT appears improved. I had an extensive discussion with her sister who is her healthcare decision maker Alba Solis regarding the patient's wishes and goals of care. I also spoke with Andrea Solis her nephew [phone] and updated him as well. Isacc indicated to me that this point given that her mental status has worsened again she believes her sister's wishes would be to be made comfort measures only at this time. I discussed with Alba all medical options as well as the next steps. I discussed with her home versus hospice house. She is initially unable to take care of Alba at home and she would prefer us to pursue hospice house if possible. She understands the waxing and waning nature of her sister's illness and believes that comfort measures only as the best course of action at this time. PAST MEDICAL/SURGICAL HISTORY: Hypertension Atrial fibrillation Coronary artery disease with stent placement CKD stage III Hyperlipidemia Peripheral neuropathy SOCIAL HISTORY: From chart review prior to her last stroke patient lived independently at her own residence. FAMILY HISTORY: Unable to obtain due to patient's mental state ALLERGIES: Please see below. REVIEW OF SYSTEMS: Unable to obtain review of systems due to patient's mental state HOME MEDICATIONS: Please see below. PHYSICAL EXAMINATION: Constitutional: Unresponsive to verbal commands does not wake up but does occasionally open eyes spontaneously and responds to pain sternal rub. ENT: Sclera are clear. Respiratory: Lungs CTA bilaterally. No respiratory distress. Cardiovascular: Irregular heart rate Gastrointestinal: Abdomen is soft, non distended, BS present. Musculoskeletal: No lower extremity edema. Seen moving extremities during exam Neurologic: Unable to assess Mental Status: A&O x0 LABORATORY DATA: See below. IMAGING: See chart MICROBIOLOGY: Please see below. ASSESSMENT/PLAN 85-year-old female history of hypertension, CAD, CKD, atrial fibrillation was undergoing subacute rehabilitation when she was found to have worsened encephalopathy which can reflect a progression of her acute ischemic stroke that she recently had with hemorrhagic conversion. There is no obvious organic cause otherwise found. I had an extensive discussion with her sister was her healthcare proxy and she wishes to pursue comfort measures only at this time. New MOLST form completed to reflect families wishes with comfort measures only. PFS hospice consult. Family hoping for hospice house. [facility]ima orders/meds placed. [facility] Hospitalist Vital Signs Vital Signs Date Time Temp Pulse Resp B/P (MAP) Pulse Ox O2 Delivery O2 Flow Rate FiO2 10/07/20 19:00 85 174/86 (115) 94 10/07/20 17:00 Nasal Cannula 1.0 10/07/20 13:25 99.5 32 Laboratory Data Labs 24H Laboratory Tests 2 10/07/20 13:42: Immature Granulocyte % (Auto) 0.7, Neutrophils (%) (Auto) 80.0H, Lymphocytes (%) (Auto) 9.7L, Monocytes (%) (Auto) 9.2H, Eosinophils (%) (Auto) 0.1, Basophils (%) (Auto) 0.3, Neutrophils # (Auto) 14.7H, Lymphocytes # (Auto) 1.8, Monocytes # (Auto) 1.7H, Eosinophils # (Auto) 0.0, Basophils # (Auto) 0.1, Nucleated Red Blood Cells % (auto) 0.0, Urine Color YELLOW, Urine Appearance HAZY, Urine pH 5.0, Urine Specific Steward 1.024, Urine Protein 2+H, Urine Glucose (UA) NEGATIVE, Urine Ketones NEGATIVE, Urine Blood 2+H, Urine Nitrite NEGATIVE, Urine Bilirubin NEGATIVE, Urine Urobilinogen 0.2, Urine Leukocyte Esterase NEGATIVE, Urine WBC (Auto) 1, Urine RBC (Auto) 3, Urine Hyaline Casts (Auto) 0, Urine Bacteria (Auto) NEGATIVE, Urine Squamous Epithelial Cells 0, Urine Sperm (Auto) , Anion Gap 7L, Glomerular Filtration Rate 35.1, Calcium Level 10.0, Total Bilirubin 0.8, Direct Bilirubin 0.2, Aspartate Amino Transf (AST/SGOT) 45H, Alanine Aminotransferase (ALT/SGPT) 54, Alkaline Phosphatase 125H, Ammonia < 10, Total Protein 7.9, Albumin 3.3, Albumin/Globulin Ratio 0.7L 10/07/20 15:03: Blood Gas Bicarbonate Standard 25.4, Arterial Blood pH 7.454H, Arterial Blood Partial Pressure CO2 36.0, Arterial Blood Partial Pressure O2 58.9L, Arterial Blood Total CO2 25.8, Arterial Blood HCO3 24.7, Arterial Blood Base Excess 1.2, Arterial Blood Oxygen Saturation 91.6L 10/07/20 17:19: Coronavirus (COVID-19)(PCR) NEGATIVE, Influenza Type A (RT-PCR) NEGATIVE, In fluenza Type B (RT-PCR) NEGATIVE, Respiratory Syncytial Virus (PCR) NEGATIVE CBC/BMP Laboratory Tests 10/07/20 13:42 Microbiology Microbiology 10/07/20 Blood Culture, Received Pending 10/07/20 Blood Culture, Received Pending Home Medications Scheduled Acetaminophen (Acetaminophen) 500 Mg Tablet, 1,000 MG PO BID Atorvastatin Calcium (Atorvastatin Calcium) 80 Mg Tablet, 80 MG PO QHS Gabapentin (Gabapentin) 300 Mg Capsule, 300 MG PO DAILY Hydrochlorothiazide (Hydrochlorothiazide) 25 Mg Tablet, 25 MG PO DAILY Levothyroxine Sodium (Synthroid) 75 Mcg Tablet, 75 MCG PO QAM Metoprolol Tartrate (Metoprolol Tartrate) 100 Mg Tablet, 100 MG PO BID Multivitamins (Thera M Plus Tablet) 1 Each Tablet, 1 TAB PO DAILY Nystatin (Nystatin Powder) 15 Gm Powder, 1 APLCT TOP BID APPLY UNDER LEFT BREAST Quinapril HCl (Quinapril HCl) 10 Mg Tablet, 10 MG PO DAILY Scheduled PRN Acetaminophen (Acetaminophen) 325 Mg Tablet, 650 MG PO Q4H PRN for PAIN Bisacodyl (Bisacodyl) 10 Mg Supp.rect, 10 MG MS DAILY PRN for CONSTIPATION Magnesium Hydroxide (Milk of Magnesia) 400 Mg/5 Ml Oral.susp, 2,400 MG PO DAILY PRN for CONSTIPATION Sodium Phosphate,Jay-Dibasic (Enema) 133 Ml Enema, 1 ARLENE MS DAILY PRN for CONSTIPATION Allergies Coded Allergies: Penicillins (Verified Allergy, Unknown, 09/27/20) SUSU STUART MD Oct 07, 2020 19:43
[2020-10-07 20:31] VITALS: BP 215/111
[2020-10-07] MEDS: DOCUSATE SODIUM 100MG CAPSULE PO SCH (21:00)
[2020-10-08] MEDS: DOCUSATE SODIUM 100MG CAPSULE PO SCH ×2 (10:05→20:28)
[2020-10-08] MEDS: ACETAMINOPHEN TAB 650MG DOSE (2X325MG) PO PRN (10:06)
[2020-10-09] MEDS: ACETAMINOPHEN TAB 650MG DOSE (2X325MG) PO PRN ×2 (09:24→17:41)
[2020-10-09] MEDS: DOCUSATE SODIUM 100MG CAPSULE PO SCH ×2 (09:24→20:48)
[2020-10-10] MEDS: DOCUSATE SODIUM 100MG CAPSULE PO SCH ×2 (09:05→20:28)
[2020-10-10] MEDS: ACETAMINOPHEN TAB 650MG DOSE (2X325MG) PO PRN ×2 (15:48→23:37)
[2020-10-11] MEDS: DOCUSATE SODIUM 100MG CAPSULE PO SCH ×2 (08:48→21:05)
[2020-10-12] MEDS: DOCUSATE SODIUM 100MG CAPSULE PO SCH ×2 (08:00→20:26)
[2020-10-13] MEDS: DOCUSATE SODIUM 100MG CAPSULE PO SCH ×2 (09:54→21:27)
[2020-10-14] MEDS: ACETAMINOPHEN TAB 650MG DOSE (2X325MG) PO PRN (07:54)
[2020-10-14] MEDS: DOCUSATE SODIUM 100MG CAPSULE PO SCH (07:54)
[2020-10-14] MEDS ORDERED: ATIV1TAB10 PO (07:55)
[2020-10-14] MEDS ORDERED: MORP20SO3 PO (07:55)
[2020-10-14] MEDS ORDERED: HYOS125TA PO (07:55)
[2020-10-14] MEDS ORDERED: ACETAMINOPHEN 500 MG TAB PO ONE (08:30)
--- NOTE | 2020-10-14 10:56 | DS.PDOC ---
Discharge Summary General Date of Admission Oct 07, 2020 at 19:38 Date of Discharge 10/14/20 Discharge Summary if discharge summary is needed urgently, pls have community services coordinator call [employer] at [phone] castillo's discharge summary [id number] Vital Signs/I&Os Vital Signs Date Time Temp Pulse Resp B/P (MAP) Pulse Ox O2 Delivery O2 Flow Rate FiO2 10/13/20 21:00 2.0 I&O- Last 24 Hours up to 6 AM 10/14/20 06:00 Intake Total 780 ml Output Total 100 ml Balance 680 ml Laboratory Data Labs 24H Laboratory Tests 2 10/14/20 08:51: Coronavirus (COVID-19)(PCR) NEGATIVE Microbiology Microbiology 10/07/20 Blood Culture - Final, Complete NO GROWTH AFTER 5 DAYS 10/07/20 Blood Culture - Final, Complete NO GROWTH AFTER 5 DAYS Discharge Medications Scheduled PRN Hyoscyamine Sulfate (Hyoscyamine Sulfate) 0.125 Mg Tab.subl, 0.125 MG PO Q4HP PRN for TERMINAL SECRETIONS Use sublingually if unable to swallow Lorazepam (Ativan) 0.5 Mg Tablet, 0.5 MG PO Q4HP PRN for ANXIETY/AGITATION Use sublingually if unable to swallow Morphine Sulfate (Morphine Sulfate) 100 Mg/5 Ml Solution, 0.25-1 ML PO Q2H PRN f or PAIN OR DYSPNEA Use sublingually if unable to swallow Allergies Coded Allergies: Penicillins (Verified Allergy, Unknown, 09/27/20) LEIGH ANN CASTILLO MD Oct 14, 2020 10:56
--- NOTE | 2020-10-14 11:24 | DSES ---
DISCHARGE SUMMARY DATE OF ADMISSION: 10/07/2020 DATE OF DISCHARGE: 10/14/2020 The patient is comfort measures only, DNR/DNI, transferred to [facility] under comfort measures only status. PRIMARY DISCHARGE DIAGNOSIS: 1. Chronic atrial fibrillation. 2. CKD Stage III. 3. CAD. 4. Hypertension. 5. Right frontal lobe ischemic CVA with hemorrhagic transformation. 6. Acute metabolic encephalopathy. 7. Hyperlipidemia. 8. Chronic peripheral neuropathy. DISCHARGE MEDICATIONS: 1. Hyoscyamine sulfate 0.125 mg q. 4 hourly as needed for terminal secretions. 2. Ativan 0.5 mg q. 4 as needed for anxiety/agitation. 3. Morphine Sulfate 0.25 to 1 ml p.o. q. 2 as needed for pain and dyspnea. HOSPITAL COURSE: This is an 85-year-old female admitted on 10/07/2020 with a history of hypertension, CAD, CKD Stage III, atrial fibrillation, right frontal lobe ischemic CVA with hemorrhagic conversion admitted to [facility] on September 27 to for ischemic stroke with persistent encephalopathy. She was treated at that time for multi-kenisha UTI as well, was undergoing subacute rehab with worsening renal dysfunction and presented back to the ER. After extension with the patient and health care decision maker and patient's family including Andrea Solis, her nephew, , the patient's family according to patient's wishes have opted for comfort measures only. She was admitted awaiting placement. Patient has had no other acute issues during the hospitalization and remained stable on comfort measures only medication. PHYSICAL EXAMINATION: VITAL SIGNS: Temperature is 99.5, pulse is 86, irregularly irregular, respiratory rate is 20, 93% on 1 liter nasal cannula. GENERAL: Awake, alert and oriented to her name. No distress. LUNGS: Clear to auscultation. HEART: S1 and S2, irregularly irregular. ABDOMEN: Obese, soft, nontender and nondistended. Positive bowel sounds. EXTREMITIES: No cyanosis or clubbing. LABORATORY DATA: On discharge, white count is 18.4, hemoglobin is 17, hematocrit is 51, platelet count is 160,000. Sodium is 134, potassium is 3.8, chloride is 98, bicarbonate is 29, BUN 35, creatinine 1.5. Glucose is 177. Ammonia less than 10. Alkaline phosphatase is 125. IMAGING STUDY: On 10/07/2020: CT of the head: Right frontal intraparenchymal hemorrhage with edema, mild improvement, new finding. Time spent on discharge: 30 minutes MTDD
== END 2020-10-14 11:52 | DRG 951 ==
LOC: M ED 12:58 → EDBD 12:58 → M ED INP 19:38 → ENRESERV 20:59 → M MSPAV 21:56
PROVIDERS: ADMIT Family Medicine; ATTEND General Practice
DX: Z51.5 Encounter for palliative care (principal); G93.41 Metabolic encephalopathy; I63.59 Cerebral infarction due to unspecified occlusion or stenosis of other cerebral artery; I48.20 Chronic atrial fibrillation, unspecified; I12.9 Hypertensive chronic kidney disease with stage 1 through stage 4 chronic kidney disease, or unspecified chronic kidney disease; I25.10 Atherosclerotic heart disease of native coronary artery without angina pectoris; N18.30 Chronic kidney disease, stage 3 unspecified; E78.5 Hyperlipidemia, unspecified; G62.9 Polyneuropathy, unspecified; Z66 Do not resuscitate; Z20.822 Contact with and (suspected) exposure to COVID-19; Z79.899 Other long term (current) drug therapy; Z88.0 Allergy status to penicillin

== ENCOUNTER → 2020-10-07 | Outpatient (REF) ==
[~2020-10-07] MED LIST changes: +ACET500T15 PO; +APAP325T4 PO; +ATIV1TAB10 PO; +ATOR80TA59 PO; +BISA10SU27 PR; +COMMENTS; +Cephalexin Monohydrate PO; +ENEMENE PR; +GABA-282 PO; +HYDR-3490 PO; +MAGN400O50 PO; +METO100T5 PO; +NYST1POW9 TOP; +QUET25TA3 PO; +QUIN10TA32 PO; +SYNT75TA PO; +VITMTA PO
[2020-10-07 10:40] LABS: HEMOGLOBIN 16.4 g/dl (12.0-15.5); MEAN CORPUSCULAR HEMOGLOBIN 29.9 pg (27.0-33.0); MEAN CORPUSCULAR HGB CONC 32.8 g/dl (32.0-36.5); MEAN CORPUSCULAR VOLUME 91.2 fl (80.0-96.0); PLATELET COUNT, AUTOMATED 171 10^3/uL (150-450); RED BLOOD COUNT 5.48 10^6/uL (4.00-5.40); WHITE BLOOD COUNT 16.9 10^3/uL (4.0-10.0)
[2020-10-07 10:54] LABS: CALCIUM LEVEL 9.9 MG/DL (8.8-10.2); CREATININE FOR GFR 1.39 MG/DL (0.55-1.30); GLOMERULAR FILTRATION RATE 38.4 (>32); POTASSIUM SERUM 3.5 MEQ/L (3.5-5.1)
== END ==
PROVIDERS: ATTEND Internal Medicine
DX: I50.9 Heart failure, unspecified (principal)

== ENCOUNTER → 2020-10-17 | Outpatient (REF) | payer MEDICARE ==
[~2020-10-17] MED LIST changes: +ACET500T15 PO; +APAP325T4 PO; +BISA10SU27 PR; +ENEMENE PR; +HYOS125TA PO; +MAGN400O50 PO; +MORP20SO3 PO; +NYST1POW9 TOP; +VITMTA PO
[2020-10-17 22:18] LABS: INFLUENZA A AMPLIFICATION NEGATIVE (NEGATIVE); INFLUENZA B AMPLIFICATION NEGATIVE (NEGATIVE)
== END ==
PROVIDERS: ATTEND Internal Medicine
DX: Z11.59 Encounter for screening for other viral diseases (principal)

== ENCOUNTER → 2020-10-24 | Outpatient (REF) | PROVIDERS: ATTEND Internal Medicine | DX: R09.02 Hypoxemia (principal) ==

== ENCOUNTER → 2020-10-26 | Outpatient (REF) | payer MEDICARE ==
[2020-10-26 11:54] LABS: RSV AMPLIFICATION NEGATIVE (NEGATIVE)
== END ==
PROVIDERS: ATTEND Internal Medicine
DX: Z11.59 Encounter for screening for other viral diseases (principal)

== ENCOUNTER → 2020-10-28 | Outpatient (REF) | payer MEDICARE | PROVIDERS: ATTEND Internal Medicine | DX: Z20.822 Contact with and (suspected) exposure to COVID-19 (principal) ==